=== PATIENT | female | born 1995 | race Caucasian/White ===

== ENCOUNTER 2022-10-07 12:14 | Emergency (ER) | payer MEDICAID, OTHER ==
[~2022-10-07] VITALS: Ht 160 cm; Wt 66.2 kg
[2022-10-07 12:31] VITALS: BP 124/69
--- NOTE | 2022-10-07 12:31 | NUR ---
PATIENT AMBULATED TO BED 7.
--- NOTE | 2022-10-07 12:34 | NUR ---
27 y/o female bib self from home, c/o rectal pain, dark red bleeding with BM since yesterday. pt states pain increases with sitting down, 8/10 at this time. pt states she has "piece of thick skin" near rectum since she was a child and states she does not know what it is, but it has become more swollen and irritated. pmh: denies nka med: denies
--- NOTE | 2022-10-07 12:38 | NUR ---
DR. WALDRON EVALUATING PATIENT AT BEDSIDE.
--- NOTE | 2022-10-07 12:38 | NUR ---
27YO FEMALE PT C/O RECTAL PAIN [id number]. PAIN AT MOST ON BOWEL MOVEMENT. REPORTS BRIGHT RED BLOODY STOOL. EXT HEMORROIDS NOTED. DENIES TAKING MEDICATION , ABD PAIN, N/V/D, SOB, FEVER OR CHILLS. PT AAOX4, HOB POSITIONED PER COMFORT. HX:DENIES NKA
--- NOTE | 2022-10-07 12:45 | NUR ---
Female Lock Assembler accompanied female patient for Rectal Exam.
[2022-10-07] MEDS ORDERED: HYDR25SU91 RC (12:48)
[2022-10-07] MEDS ORDERED: HYDR-2734 TP (12:48)
[2022-10-07 13:15] VITALS: BP 124/69
--- NOTE | 2022-10-07 13:15 | NUR ---
Patient discharged with v/s stable. Written and verbal after care instructions given and explained. Patient verbalized understanding. Ambulatory with steady gait. All questions addressed prior to discharge. Advised to follow up with PMD.
--- NOTE | 2022-10-07 13:16 | NUR ---
The patient's care was reviewed and supervised by Nidia Quintanilla, RN, RN.
== END 2022-10-07 13:15 | disposition home or self-care (01) ==
LOC: MED 12:14
DX: K64.4 Residual hemorrhoidal skin tags (principal); Z79.899 Other long term (current) drug therapy
CPT/HCPCS: 99281